=== PATIENT | female | born 1935 | race Two or more races ===

== ENCOUNTER 2016-07-06 17:54 | Emergency (ER) | payer OTHER ==
[~2016-07-06] VITALS: Ht 154.9 cm; Wt 72.6 kg
[2016-07-06] MEDS ORDERED: ONDANSETRON HCL 4 MG/2 ML VIAL IV ONE (21:00)
[2016-07-06] MEDS ORDERED: SODIUM CHLORIDE 0.9% 1,000 ML IV ONE (21:00)
[2016-07-06] MEDS ORDERED: MORPHINE SULFATE 4 MG/ML SYRG IV ONE (21:00)
[2016-07-06 21:10] LABS: Basophils # (auto) 0.1 uL; Basophils % (auto) 0.9 % (0.0-2.0); Eosinophils # (auto) 0.3 uL; Eosinophils % (auto) 4.1 % (0.0-7.0); Hematocrit 32.7 % (36.0-46.0); Hemoglobin 10.5 g/dL (12.2-16.2); Lymphocytes # (auto) 1.6 uL; Lymphocytes % (auto) 21.1 % (10.0-50.0); Mean Corpuscular Hemoglobin 30.8 pg (28.0-32.0); Mean Corpuscular Hgb Conc. 32.2 g/dL (32.0-36.0); Mean Corpuscular Volume 95.8 fL (80.0-100.0); Mean Platelet Volume 7.2 fL (7.4-10.4); Monocytes # (auto) 0.7 uL; Monocytes % (auto) 10.1 % (0.0-12.0); Neutrophils # (auto) 4.7 uL; Neutrophils % (auto) 63.8 % (37.0-80.0); Platelet Count (auto) 402 10^3/uL (140-450); Red Cell Distribution Width 13.6 % (11.6-16.0); White Blood Cell 7.4 10^3/uL (4.4-10.8)
[2016-07-06 21:30] LABS: Albumin 3.1 g/dL (3.4-5.0); Bilirubin, Total 0.8 mg/dL (0.2-1.0); Calcium 8.7 mg/dL (8.5-10.1); Potassium 3.7 mmol/L (3.5-5.1); Total Protein 6.9 g/dL (6.4-8.2)
[2016-07-06 21:33] LABS: INR 1.11 (0.9-1.15); Partial Thromboplastin Time 25.3 sec (22.64-33.71); Prothrombin Time 11.4 sec (9.37-12.3)
[2016-07-07 00:44] VITALS: BP 103/51
== END 2016-07-07 02:27 | disposition home or self-care (01) ==
LOC: ER 17:54
DX: R52 Pain, unspecified (principal); M54.2 Cervicalgia; M25.512 Pain in left shoulder; M25.511 Pain in right shoulder; K59.00 Constipation, unspecified; J45.909 Unspecified asthma, uncomplicated; I50.9 Heart failure, unspecified; J44.9 Chronic obstructive pulmonary disease, unspecified; Z85.9 Personal history of malignant neoplasm, unspecified; W19.XXXA Unspecified fall, initial encounter; Y93.89 Activity, other specified; Y99.8 Other external cause status; Y92.89 Other specified places as the place of occurrence of the external cause
CPT/HCPCS: 36415; 70450; 71010; 72125; 74176; 80053; 84484; 85025; 85610; 85730; 93005; 96361; 96374; 96375; 99285; J2270; J2405; J7030

== ENCOUNTER 2016-08-22 07:20 | Inpatient (IN) | payer MEDICARE, OTHER ==
[~2016-08-22] VITALS: Ht 162.6 cm; Wt 84.1 kg
[2016-08-22 08:14] LABS: Basophils # (auto) 0 uL; Basophils % (auto) 0.1 % (0.0-2.0); Eosinophils # (auto) 0.2 uL; Eosinophils % (auto) 1.1 % (0.0-7.0); Hematocrit 37.3 % (36.0-46.0); Hemoglobin 12.6 g/dL (12.2-16.2); Lymphocytes # (auto) 1.2 uL; Mean Corpuscular Hemoglobin 31.7 pg (28.0-32.0); Mean Corpuscular Hgb Conc. 33.7 g/dL (32.0-36.0); Mean Platelet Volume 6.9 fL (7.4-10.4); Monocytes # (auto) 0.3 uL; Neutrophils % (auto) 88.8 % (37.0-80.0); Platelet Count (auto) 337 10^3/uL (140-450); Red Cell Distribution Width 14.4 % (11.6-16.0); White Blood Cell 14.6 10^3/uL (4.4-10.8)
[2016-08-22 08:38] LABS: Albumin 3.6 g/dL (3.4-5.0); Alkaline Phosphatase 105 U/L (45-117); Anion Gap 11 (5-15); Aspartate Aminotransferase 35 U/L (15-37); BUN/Creatinine Ratio 28.4; Bilirubin, Total 1.1 mg/dL (0.2-1.0); Blood Urea Nitrogen 38 mg/dL (7-18); Calcium 8.7 mg/dL (8.5-10.1); Carbon Dioxide 28 mmol/L (21-32); Chloride 102 mmol/L (98-107); GFR African American 49 mL/min; GFR Non-African American 40 mL/min; Glucose 107 mg/dL (74-106); Magnesium 2.6 mg/dL (1.6-2.6); Sodium 141 mmol/L (136-145); Total Protein 7.5 g/dL (6.4-8.2)
[2016-08-22 08:59] LABS: B-Type Natriuretic Peptide 53.46 pg/mL (0-100)
[2016-08-22] MEDS ORDERED: SODIUM CHLORIDE 0.9% 1,000 ML IVB ONE (09:09)
[2016-08-22 09:10] LABS: Temperature: 22.2 C (20.0-25.0)
[2016-08-22] MEDS ORDERED: PROMETHAZINE HCL 25 MG/ML 1ML IV ONE (09:15)
[2016-08-22 09:34] LABS: Urine Bilirubin Negative (Negative); Urine Blood Negative /uL (Negative); Urine Color Yellow (Yellow); Urine Glucose Normal (Normal); Urine Ketone Negative (Negative); Urine Nitrite Negative (Negative); Urine RBC <1 /hpf (0 - 4); Urine Squamous Epithelial Cell FEW /hpf (<5); Urine Urobilinogen Normal (Negative)
[2016-08-22] MEDS ORDERED: PROMETHAZINE HCL 25 MG/ML 1ML IV PRN (13:45)
[2016-08-22] MEDS ORDERED: LORazepam 0.5 MG TAB PO PRN (13:45)
[2016-08-22] MEDS ORDERED: MORPHINE SULF INJ 2 MG/ML SYRINGE 1ML IV PRN (13:45)
[2016-08-22] MEDS ORDERED: TEMAZEPAM 15 MG CAP PO PRN (13:45)
[2016-08-22] MEDS ORDERED: cefTRIAXone 1GM/50ML D5W 50 ML IV ONE (13:45)
[2016-08-22] MEDS ORDERED: ACETAMINOPHEN 500 MG TAB PO PRN (13:45)
[2016-08-22] MEDS: SODIUM CHLORIDE 0.9% 1,000 ML IV SCH ×2 (13:54→16:44)
[2016-08-22] MEDS ORDERED: SENN8.6T15 PO (16:22)
[2016-08-22] MEDS ORDERED: FURO20TA3 PO (16:23)
[2016-08-22] MEDS ORDERED: TEMA30CA PO (16:26)
[2016-08-22] MEDS ORDERED: LEVO50TA7 PO (16:26)
[2016-08-22] MEDS ORDERED: NOR5T PO (16:26)
[2016-08-22] MEDS ORDERED: LISI-275 PO (16:26)
[2016-08-22] MEDS ORDERED: AMLO5TAB2 PO (16:26)
[2016-08-22] MEDS: HYDROcodone-ACET 5/325MG TAB PO PRN (16:44)
[2016-08-22] MEDS: metroNIDAZOLE 500MG/100ML 100 ML IV SCH ×2 (17:40→23:46)
[2016-08-22] MEDS ORDERED: SODIUM BICARBONATE 8.4% INJ 50ML SYRINGE ONE ×2 (18:55→20:55)
[2016-08-22 21:51] VITALS: BP 136/75
[2016-08-22] MEDS: PANTOPRAZOLE 40 MG TAB PO SCH (21:55)
[2016-08-22] MEDS ORDERED: FAMOTIDINE 20 MG TAB PO SCH (22:00)
[2016-08-23] VITALS (9 sets, daily range): BP systolic 100–144; BP diastolic 63–88
[2016-08-23] MEDS: MORPHINE SULF INJ 2 MG/ML SYRINGE 1ML IV PRN (04:08)
[2016-08-23 06:29] LABS: Basophils # (auto) 0 uL; Basophils % (auto) 0.3 % (0.0-2.0); Eosinophils # (auto) 0.2 uL; Eosinophils % (auto) 3.5 % (0.0-7.0); Hematocrit 33.6 % (36.0-46.0); Hemoglobin 11.2 g/dL (12.2-16.2); Lymphocytes # (auto) 1.3 uL; Lymphocytes % (auto) 19.8 % (10.0-50.0); Mean Corpuscular Hemoglobin 31.6 pg (28.0-32.0); Mean Corpuscular Hgb Conc. 33.3 g/dL (32.0-36.0); Mean Corpuscular Volume 94.9 fL (80.0-100.0); Mean Platelet Volume 7.6 fL (7.4-10.4); Monocytes # (auto) 0.5 uL; Neutrophils # (auto) 4.5 uL; Neutrophils % (auto) 69.4 % (37.0-80.0); Platelet Count (auto) 290 10^3/uL (140-450); Red Cell Distribution Width 14.2 % (11.6-16.0); White Blood Cell 6.5 10^3/uL (4.4-10.8)
[2016-08-23 06:49] LABS: Albumin 2.8 g/dL (3.4-5.0); Calcium 8.2 mg/dL (8.5-10.1)
[2016-08-23 06:52] LABS: BUN/Creatinine Ratio 22.1
[2016-08-23 06:55] LABS: Bilirubin, Total 1.2 mg/dL (0.2-1.0); Total Protein 6.4 g/dL (6.4-8.2)
[2016-08-23 07:00] LABS: INR 1.07 (0.9-1.15)
[2016-08-23] MEDS: metroNIDAZOLE 500MG/100ML 100 ML IV SCH ×3 (07:28→17:41)
[2016-08-23] MEDS ORDERED: FLUMAZENIL 0.1 MG/ML INJ 10ML MDV IV ONE (08:09)
[2016-08-23] MEDS ORDERED: SODIUM CHLORIDE LOCK 10 ML ONE (08:09)
[2016-08-23] MEDS ORDERED: diphenhdrAMINE HCL 50 MG/1 ML VL ONE (08:09)
[2016-08-23] MEDS ORDERED: NALOXONE HCL 0.4 MG/ML VIAL ONE (08:09)
[2016-08-23] MEDS ORDERED: LIDOCAINE VISCOUS 2% 15ML UD ONE (08:09)
[2016-08-23] MEDS: fentaNYL CITRATE 100 MCG/2 ML VL ONE ×3 (09:20→09:29)
[2016-08-23] MEDS: MIDAZOLAM HCL 5 MG/ML-1ML VIAL ONE ×3 (09:20→09:29)
[2016-08-23] MEDS ORDERED: FAMOTIDINE 20 MG TAB PO SCH (10:00)
[2016-08-23] MEDS: PANTOPRAZOLE 40 MG TAB PO SCH ×2 (10:46→21:59)
[2016-08-23] MEDS: cefTRIAXone 1GM/50ML D5W 50 ML IV SCH (10:46)
[2016-08-23] MEDS: ENOXAPARIN SOD 40 MG/0.4 ML SYRINGE SC SCH (10:46)
[2016-08-23] MEDS: SODIUM CHLORIDE 0.9% 1,000 ML IV SCH (17:41)
[2016-08-23] MEDS: NITROGLYCERIN 0.4 MG SL TAB SL PRN ×3 (19:40→19:48)
[2016-08-23] MEDS: HYDROcodone-ACET 5/325MG TAB PO PRN (20:37)
[2016-08-24] MEDS: metroNIDAZOLE 500MG/100ML 100 ML IV SCH ×4 (00:04→18:23)
[2016-08-24] MEDS: HYDROcodone-ACET 5/325MG TAB PO PRN ×4 (02:22→22:03)
[2016-08-24] MEDS: SODIUM CHLORIDE 0.9% 1,000 ML IV SCH ×2 (02:26→23:30)
[2016-08-24 05:21] VITALS: BP 131/77
[2016-08-24] MEDS: LEVOTHYROXINE SODIUM 25 MCG TAB PO SCH (06:40)
[2016-08-24] MEDS: PANTOPRAZOLE 40 MG TAB PO SCH ×2 (09:57→22:03)
[2016-08-24] MEDS: cefTRIAXone 1GM/50ML D5W 50 ML IV SCH (09:58)
[2016-08-24] MEDS: ENOXAPARIN SOD 40 MG/0.4 ML SYRINGE SC SCH (09:59)
[2016-08-24 10:00] VITALS: BP 146/86
[2016-08-24] MEDS ORDERED: LEV25T PO (10:09)
[2016-08-24 12:30] VITALS: BP 133/88
[2016-08-24 17:00] VITALS: BP 144/94
[2016-08-24 22:00] VITALS: BP 151/99
[2016-08-25] MEDS: metroNIDAZOLE 500MG/100ML 100 ML IV SCH ×2 (01:51→06:19)
[2016-08-25 05:30] VITALS: BP 156/99
[2016-08-25] MEDS: LEVOTHYROXINE SODIUM 25 MCG TAB PO SCH (06:19)
[2016-08-25] MEDS: HYDROcodone-ACET 5/325MG TAB PO PRN ×2 (06:28→13:25)
[2016-08-25 08:00] VITALS: BP 177/82
[2016-08-25 09:00] VITALS: BP 177/82
[2016-08-25] MEDS: cefTRIAXone 1GM/50ML D5W 50 ML IV SCH (09:12)
[2016-08-25] MEDS ORDERED: METR500T PO (09:29)
[2016-08-25] MEDS ORDERED: CIPR-173 PO (09:29)
[2016-08-25] MEDS ORDERED: hydrALAZINE HCL 20 MG/ML VL IV ONE ×3 (10:00→10:15)
[2016-08-25] MEDS: ENOXAPARIN SOD 40 MG/0.4 ML SYRINGE SC SCH (10:09)
[2016-08-25] MEDS: PANTOPRAZOLE 40 MG TAB PO SCH (10:09)
[2016-08-25] MEDS ORDERED: AMLO5TAB2 PO (10:54)
[2016-08-25 12:46] VITALS: BP 144/98
[2016-08-25] MEDS: MORPHINE SULF INJ 2 MG/ML SYRINGE 1ML IV PRN (12:49)
[2016-08-25] MEDS ORDERED: amLODIPine BESYLATE 5 MG TAB PO ONE (13:00)
[2016-08-25 16:31] VITALS: BP 177/82
[2016-08-25] MEDS: NITROGLYCERIN 0.4 MG SL TAB SL PRN (16:45)
== END 2016-08-25 17:35 | disposition hospice, home (50) | DRG 683 ==
LOC: ER 07:20 → EDAGE 07:20 → EDUNIT# 07:20 → TELE 07:21 → TELE-WESTW 15:25
PROVIDERS: ADMIT Internal Medicine; ATTEND Internal Medicine
PROC: 0DBN8ZX Excision of Sigmoid Colon, Via Natural or Artificial Opening Endoscopic, Diagnostic (ICD-10-PCS; 2016-08-23)
PROC: 0DB68ZX Excision of Stomach, Via Natural or Artificial Opening Endoscopic, Diagnostic (ICD-10-PCS; principal; 2016-08-23 09:15)
PROC: 0DBP8ZX Excision of Rectum, Via Natural or Artificial Opening Endoscopic, Diagnostic (ICD-10-PCS; 2016-08-23 09:15)
DX: N17.0 Acute kidney failure with tubular necrosis (principal); M48.56XA Collapsed vertebra, not elsewhere classified, lumbar region, initial encounter for fracture; K52.9 Noninfective gastroenteritis and colitis, unspecified; J44.9 Chronic obstructive pulmonary disease, unspecified; I50.9 Heart failure, unspecified; E03.9 Hypothyroidism, unspecified; K57.90 Diverticulosis of intestine, part unspecified, without perforation or abscess without bleeding; K42.9 Umbilical hernia without obstruction or gangrene; K40.20 Bilateral inguinal hernia, without obstruction or gangrene, not specified as recurrent; I11.0 Hypertensive heart disease with heart failure; E86.0 Dehydration; G89.29 Other chronic pain; J45.909 Unspecified asthma, uncomplicated; K86.89 Other specified diseases of pancreas; Z85.3 Personal history of malignant neoplasm of breast; Z90.13 Acquired absence of bilateral breasts and nipples; Z90.49 Acquired absence of other specified parts of digestive tract
CPT/HCPCS: 36415; 43239; 45331; 71010; 74176; 80053; 81001; 82378; 83605; 83690; 83735; 83880; 84439; 84443; 84481; 84484; 85025; 85610; 85652; 85730; 86141; 87045; 87086; 87493; 87899; 93005; 94761; 96361; 96365; 96375; J0696; J2250; J3490

== ENCOUNTER 2017-01-01 12:06 | Inpatient (IN) | payer MEDICARE, OTHER ==
[~2017-01-01] VITALS: Ht 154.9 cm; Wt 84.6 kg
[~2017-01-01 12:06] MED LIST: AMLO5TAB2 PO; CIPR-173 PO; FURO20TA3 PO; HYDR-4663 PO; LEV25T PO; LISI-275 PO; METR500T PO; SENN8.6T15 PO; TEMA30CA PO
[2017-01-01] MEDS ORDERED: MORPHINE SULF INJ 2 MG/ML SYRINGE 1ML ONE (12:18)
[2017-01-01] MEDS ORDERED: PROMETHAZINE HCL 25 MG/ML 1ML ONE (12:18)
[2017-01-01] MEDS ORDERED: MORPHINE SULF INJ 2 MG/ML SYRINGE 1ML IV ONE (12:30)
[2017-01-01] MEDS ORDERED: PROMETHAZINE HCL 25 MG/ML 1ML IV ONE (12:30)
[2017-01-01] MEDS ORDERED: SODIUM CHLORIDE 0.9% 1,000 ML IV ONE (12:31)
[2017-01-01 12:48] LABS: Basophils # (auto) 0 uL; Basophils % (auto) 0.1 % (0.0-2.0); CONDITION Y; Eosinophils # (auto) 0.1 uL; Eosinophils % (auto) 1.4 % (0.0-7.0); Hematocrit 34.4 % (36.0-46.0); Hemoglobin 11.8 g/dL (12.2-16.2); Lymphocytes # (auto) 1.6 uL; Lymphocytes % (auto) 17.5 % (10.0-50.0); Mean Corpuscular Hemoglobin 31.2 pg (28.0-32.0); Mean Corpuscular Hgb Conc. 34.3 g/dL (32.0-36.0); Mean Corpuscular Volume 90.9 fL (80.0-100.0); Mean Platelet Volume 7.2 fL (7.4-10.4); Monocytes # (auto) 0.6 uL; Monocytes % (auto) 6.9 % (0.0-12.0); Neutrophils # (auto) 6.6 uL; Neutrophils % (auto) 74.1 % (37.0-80.0); Platelet Count (auto) 318 10^3/uL (140-450)
[2017-01-01] MEDS ORDERED: IOHEXOL 300 MG/ML 100ML BOTTLE IJ ONE (12:56)
[2017-01-01 13:11] LABS: Magnesium 2.6 mg/dL (1.6-2.6)
[2017-01-01 13:14] LABS: Albumin 3.1 g/dL (3.4-5.0); Alkaline Phosphatase 83 U/L (45-117); Anion Gap 9 (5-15); Aspartate Aminotransferase 12 U/L (15-37); BUN/Creatinine Ratio 32.2; Bilirubin, Total 0.6 mg/dL (0.2-1.0); Blood Urea Nitrogen 37 mg/dL (7-18); Calcium 8.1 mg/dL (8.5-10.1); Carbon Dioxide 29 mmol/L (21-32); Chloride 98 mmol/L (98-107); GFR African American 58 mL/min; GFR Non-African American 48 mL/min; Glucose 103 mg/dL (74-106); Potassium 3.5 mmol/L (3.5-5.1); Sodium 136 mmol/L (136-145); Total Protein 6.7 g/dL (6.4-8.2)
[2017-01-01 15:30] LABS: Urine Bilirubin Negative (Negative); Urine Blood Negative /uL (Negative); Urine Color Yellow (Yellow); Urine Glucose Normal (Normal); Urine Ketone Negative (Negative); Urine Nitrite Negative (Negative); Urine RBC <1 /hpf (0 - 4); Urine Squamous Epithelial Cell FEW /hpf (<5); Urine Urobilinogen Normal (Negative)
[2017-01-01] MEDS ORDERED: cefTRIAXone 1GM/50ML D5W 50 ML IV ONE (18:00)
[2017-01-01] MEDS ORDERED: ONDANSETRON HCL 4 MG/2 ML VIAL IV PRN (18:00)
[2017-01-01] MEDS ORDERED: MORPHINE SULF INJ 2 MG/ML SYRINGE 1ML IV PRN ×2 (18:00)
[2017-01-01] MEDS ORDERED: ENALAPRILAT 1.25 MG/ML-1ML VIAL IV PRN (18:00)
[2017-01-01] MEDS ORDERED: NITROGLYCERIN 0.4 MG SL TAB SL PRN (18:00)
[2017-01-01] MEDS ORDERED: ALBUTEROL SULF 2.5 MG/0.5ML(0.5%) NEB SOLN NEB PRN (18:15)
[2017-01-01] MEDS: SODIUM CHLORIDE 0.9% 1,000 ML IV SCH (18:23)
[2017-01-01 19:18] VITALS: BP 127/71
[2017-01-01 22:00] VITALS: BP 144/83
[2017-01-02] MEDS: metroNIDAZOLE 500MG/100ML 100 ML IV SCH ×5 (00:28→23:33)
[2017-01-02] MEDS: SODIUM CHLORIDE 0.9% 1,000 ML IV SCH ×3 (02:14→18:53)
[2017-01-02 05:00] VITALS: BP 121/78
[2017-01-02 05:52] LABS: Basophils # (auto) 0 uL; Basophils % (auto) 0.5 % (0.0-2.0); CONDITION Y; Eosinophils # (auto) 0.2 uL; Eosinophils % (auto) 3.2 % (0.0-7.0); Hemoglobin 11.9 g/dL (12.2-16.2); Lymphocytes % (auto) 26.4 % (10.0-50.0); Mean Corpuscular Hemoglobin 31.3 pg (28.0-32.0); Mean Platelet Volume 7.3 fL (7.4-10.4); Monocytes # (auto) 0.5 uL; Monocytes % (auto) 6.8 % (0.0-12.0); Neutrophils # (auto) 4.7 uL; Neutrophils % (auto) 63.1 % (37.0-80.0); Platelet Count (auto) 302 10^3/uL (140-450); Red Cell Distribution Width 14.3 % (11.6-16.0); White Blood Cell 7.5 10^3/uL (4.4-10.8)
[2017-01-02 06:01] LABS: INR 0.96 (0.9-1.15); Prothrombin Time 10.5 sec (9.37-12.3)
[2017-01-02 06:16] LABS: Albumin 2.8 g/dL (3.4-5.0); BUN/Creatinine Ratio 29.7; Bilirubin, Total 1.1 mg/dL (0.2-1.0); Calcium 8.1 mg/dL (8.5-10.1); Potassium 3.6 mmol/L (3.5-5.1); Total Protein 6.1 g/dL (6.4-8.2)
[2017-01-02 08:00] VITALS: BP 148/79
[2017-01-02 08:44] VITALS: BP 148/79
[2017-01-02] MEDS: cefTRIAXone 1GM/50ML D5W 50 ML IV SCH (08:57)
[2017-01-02 13:02] VITALS: BP 131/77
[2017-01-02] MEDS ORDERED: GASTROGRAFIN 120 ML SOL ONE (15:57)
[2017-01-02 17:39] VITALS: BP 132/90
[2017-01-02 22:00] VITALS: BP 139/95
[2017-01-03] MEDS: SODIUM CHLORIDE 0.9% 1,000 ML IV SCH ×2 (03:14→11:50)
[2017-01-03 05:00] VITALS: BP 142/86
[2017-01-03] MEDS: metroNIDAZOLE 500MG/100ML 100 ML IV SCH ×2 (05:41→11:50)
[2017-01-03 08:00] VITALS: BP 123/83
[2017-01-03] MEDS: cefTRIAXone 1GM/50ML D5W 50 ML IV SCH (08:27)
[2017-01-03 08:53] VITALS: BP 123/83
[2017-01-03 11:46] VITALS: BP 133/81
[2017-01-03 14:29] VITALS: BP 133/81
[2017-01-03 16:21] VITALS: BP 107/52
== END 2017-01-03 17:15 | disposition home or self-care (01) | DRG 394 ==
LOC: ER 12:06 → EDBD 12:06 → TELE 12:07 → CENTRAL 01-02 00:08 → TELE-CENTR 01-02 02:03 → UNDODISIN 01-03 13:15
PROVIDERS: ADMIT Internal Medicine; ATTEND Internal Medicine
DX: K42.9 Umbilical hernia without obstruction or gangrene (principal); E44.0 Moderate protein-calorie malnutrition; I13.0 Hypertensive heart and chronic kidney disease with heart failure and stage 1 through stage 4 chronic kidney disease, or unspecified chronic kidney disease; N39.0 Urinary tract infection, site not specified; S22.060A Wedge compression fracture of T7-T8 vertebra, initial encounter for closed fracture; K86.2 Cyst of pancreas; D63.8 Anemia in other chronic diseases classified elsewhere; N18.3 Chronic kidney disease, stage 3 (moderate); I50.9 Heart failure, unspecified; E83.51 Hypocalcemia; F41.9 Anxiety disorder, unspecified; E86.0 Dehydration; E03.9 Hypothyroidism, unspecified; J44.9 Chronic obstructive pulmonary disease, unspecified; K40.20 Bilateral inguinal hernia, without obstruction or gangrene, not specified as recurrent; F51.04 Psychophysiologic insomnia; K59.09 Other constipation; E88.09 Other disorders of plasma-protein metabolism, not elsewhere classified; Z83.3 Family history of diabetes mellitus; Z85.3 Personal history of malignant neoplasm of breast; Z68.35 Body mass index [BMI] 35.0-35.9, adult
CPT/HCPCS: 36415; 71010; 74177; 74250; 80053; 81001; 83605; 83690; 83735; 84443; 84484; 85025; 85610; 87040; 87086; 93005; 93306; 94761; 96361; 96374; 96375; J0696; J2405; J3490